=== PATIENT | female | born 1965 | race Caucasian/White ===

== ENCOUNTER → 2016-10-21 | Outpatient (CLI) | payer BC ==
[~2016-10-21] MED LIST: AZIT100S19 PO; CYCL10TA9 PO; DEXAINTSOL PO; HYDR15SO8 PO; IBUP-15 PO; LISI-556 PO; NAPR-243 PO; OMEP40CA36 PO; TETRACAINESUCKERS MT; TRM50T PO
--- NOTE | 2016-10-21 17:52 | Diagnostic Imaging Report ---
INDICATION: Left foot pain. TECHNIQUE: AP, oblique, and lateral views of the left foot are obtained. FINDINGS: No fracture or acute bony abnormality is seen. IMPRESSION: Negative left foot. Dictated by: Dictated on workstation # [id number]
== END ==
LOC: RAD 16:03
PROVIDERS: ATTEND Orthopaedic Surgery
DX: M79.672 Pain in left foot (principal)
CPT/HCPCS: 73630

== ENCOUNTER → 2019-08-03 | Outpatient (CLI) | payer BC ==
--- NOTE | 2019-08-04 11:25 | Diagnostic Imaging Report ---
EXAM: Digital mammogram bilateral screening COMPARISON: This study was compared to the prior exam of 07/27/2014. There are no current complaints. The postsurgical changes involving the right retroareolar region seen on the prior study are again evident and no different. The breasts are predominantly fatty. There is no primary or secondary sign of malignancy noted. IMPRESSION: 1. There is no evidence of malignancy. 2. The patient should have her annual bilateral screening mammogram on schedule in July 2020. ACR category 1. ACR BI-RADS Category 1: Negative. Result letter will be mailed to the patient. Note: At least 10% of breast cancer is not imaged by mammography. Dictated by: Dictated on workstation # [id number]
== END ==
LOC: RAD 15:14
PROVIDERS: ATTEND Family Medicine
DX: Z12.31 Encounter for screening mammogram for malignant neoplasm of breast (principal)
CPT/HCPCS: 77063; 77067

== ENCOUNTER 2019-12-05 05:39 | Outpatient (RCR) | payer BC ==
[~2019-12-05] VITALS: Ht 160 cm; Wt 88.6 kg
[~2019-12-05 05:39] MED LIST changes: +LISI-552 PO; +MELO15TA39 PO; +OMEP20CA18 PO
== END 2019-12-05 09:47 | disposition home or self-care (01) ==
LOC: PREOP 05:39
PROVIDERS: ATTEND Surgery
DX: Z01.812 Encounter for preprocedural laboratory examination (principal); Z20.828 Contact with and (suspected) exposure to other viral communicable diseases
CPT/HCPCS: 87635

== ENCOUNTER 2019-12-07 10:25 | Day surgery (SDC) | payer BC ==
[2019-12-07] VITALS (7 sets, daily range): BP systolic 113–157; BP diastolic 57–81
[~2019-12-07] VITALS: Ht 160 cm; Wt 88.6 kg
[2019-12-07] MEDS ORDERED: NS IV 500 ML 500 ML IV PRN (10:26)
[2019-12-07] MEDS ORDERED: NS IV 500 ML 500 ML ONE (10:27)
[2019-12-07] MEDS ORDERED: fentaNYL INJECTION 100 MCG/2 ML AMP IVP ONE (10:30)
[2019-12-07] MEDS ORDERED: LIDOCAINE JELLY 2% 6 ML SYRINGE MM PRN (10:30)
[2019-12-07] MEDS ORDERED: MIDAZOLAM 5 MG/5 ML (VERSED) VIAL IV ONE (10:30)
[2019-12-07] MEDS ORDERED: LACTATED RINGERS 1,000 ML IV STA (10:44)
[2019-12-07] MEDS ORDERED: PROPOFOL INJECTION 50 ML IV ONE (11:38)
[2019-12-07] MEDS ORDERED: LIDOCAINE JELLY 2% 6 ML SYRINGE ONE (12:31)
--- NOTE | 2019-12-07 12:53 | Progress Note-Pre Operative ---
Pre-Operative Progress Note H&P Reviewed The H&P was reviewed, patient examined and no changes noted. Date Seen by Provider: Dec 07, 2019 Time Seen by Provider: 11: Date H&P Reviewed: Dec 07, 2019 Time H&P Reviewed: :30 Pre-Operative Diagnosis: acreening, family hx colon ca SALINAS STUART MD Dec 07, 2019 12:53
--- NOTE | 2019-12-07 12:54 | Progress Note-Post Operative ---
Post-Operative Progess Note Surgeon (s)/Yarn Weight And Strength Tester (s) Surgeon SALINAS STUART MD Yarn Weight And Strength Tester: none Pre-Operative Diagnosis acreening, family hx colon ca Post-Operative Diagnosis mild chronic stage 2 ext and int hemorrhoids, mild sigmoid diverticulosis. Procedure & Operative Findings Date of Procedure 12/07/19 Procedure Performed/Findings EGD with bx. colonoscopy Anesthesia Type mac Estimated Blood Loss Estimated blood loss (mL): minimal Specimens/Packing Specimens Removed none SALINAS STUART MD Dec 07, 2019 12:54
--- NOTE | 2019-12-07 12:55 | Discharge Inst-Surgical ---
D/C Lap Instructions-NARCISO Follow Up Appt in 2 weeks Activity as tolerated High Fiber Diet 25g or more per day Avoid Alcohol, Caffeine, Spicy [place] and Acid foods. Drink 64 fluid oz or more of fluids per day. Symptoms to Report: Fever over 101 degree F, Nausea/Vomiting If any problems/questions: Contact your physician or go to Emergency Room SALINAS STUART MD Dec 07, 2019 12:55
[2019-12-07] MEDS ORDERED: ACETAMINOPHEN 325 MG TABLET PO PRN (13:00)
[2019-12-07] MEDS ORDERED: ONDANSETRON 4 MG/2 ML (SDV) Z0FRAN IVP PRN (13:00)
[2019-12-07] MEDS ORDERED: morphine INJ 10 MG/ML 1ML (SYR OR VIAL) IVP PRN ×2 (13:00)
[2019-12-07] MEDS ORDERED: HYDROcodone/APAP 5 MG/325 MG (LORTAB) TAB PO PRN (13:00)
--- NOTE | 2019-12-07 14:27 | Anesthesia-General Post-Op ---
MAC Patient Condition Mental Status/LOC: Same as Preop Cardiovascular: Satisfactory Nausea/Vomiting: Absent Respiratory: Satisfactory Pain: Controlled Complications: Absent Post Op Complications Complications None Follow Up Care/Instructions Patient Instructions None needed. Anesthesiology Discharge Order Discharge Order Patient is doing well, no complaints, stable vital signs, no apparent adverse anesthesia problems. No complications reported per nursing. VIKAS PASCUAL FITTER'S ASSISTANT Dec 07, 2019 14:27
--- NOTE | 2019-12-07 16:34 | OPERATIVE REPORT ---
DATE OF SERVICE: 12/07/2019 ATTENDING PRIMARY CARE PHYSICIAN: Hannah Sellers MD PREOPERATIVE DIAGNOSIS: Screening colonoscopy. POSTOPERATIVE DIAGNOSIS: Mild chronic stage II external and internal hemorrhoids, mild sigmoid diverticulosis. PROCEDURE: Colonoscopy. SURGEON: Salinas Stuart MD. ANESTHESIA: Monitored anesthesia care. ESTIMATED BLOOD LOSS: Minimal. FINDINGS: Mild chronic stage II external and internal hemorrhoids, mild sigmoid diverticulosis. DISPOSITION: The patient tolerated the procedure well. INDICATIONS: The patient is a 54-year-old female in need of a followup screening colonoscopy. She had one approximately 5 years ago and was found to have a stage II external and internal hemorrhoids as well as a mild sigmoid diverticulosis. She does have a family history of colon cancer with both her mother and father being diagnosed with the disease. She is otherwise doing well, does not report any red blood per rectum nor any dark tarry stools. DESCRIPTION OF PROCEDURE: The patient was brought to the endoscopy suite, laid in the left lateral decubitus position. After adequate IV pain and sedative medications and monitored anesthesia care, a digital rectal examination was performed, which revealed mild chronic stage II external and internal hemorrhoids, not actively edematous nor inflamed and no bleeding. Normal sphincter tone was felt and there were no palpable masses. The endoscope was then intubated to the anus and rectum gently insufflated. The endoscope was then advanced through the valves of [place] rectum with no polyps or any neoplasms identified. We then proceeded through the sigmoid colon where a mild sigmoid diverticulosis identified. There were no mucosal inflammatory changes to indicate any active diverticulitis. The endoscope was then advanced to the remainder of the descending, transverse and ascending colon to the cecum. These segments were normal. There were no polyps or any neoplasms identified throughout the colon or rectum. The endoscope was then slowly withdrawn while taking a second look and suctioning of residual air with no additional findings. The patient tolerated the procedure well. We will recommend continued medical management with a high fiber diet with at least 25 grams of fiber daily as well as significant amounts of water to promote soft stools on a daily basis. We will recommend a followup colonoscopy in 5 years. Job ID: [id number] DocumentID: [id number] Dictated Date: 12/07/2019 12:45:23 Kiosk Sales Representative Date: 12/07/2019 15:24:39 Dictated By: SALINAS STUART MD
== END 2019-12-07 13:25 | disposition home or self-care (01) ==
LOC: ENDO 10:25
PROVIDERS: ATTEND Surgery
DX: Z12.11 Encounter for screening for malignant neoplasm of colon (principal); K64.1 Second degree hemorrhoids; K57.30 Diverticulosis of large intestine without perforation or abscess without bleeding; I10 Essential (primary) hypertension; K21.9 Gastro-esophageal reflux disease without esophagitis; M19.90 Unspecified osteoarthritis, unspecified site; E66.9 Obesity, unspecified; Z68.34 Body mass index [BMI] 34.0-34.9, adult; Z79.899 Other long term (current) drug therapy; Z88.0 Allergy status to penicillin; Z88.2 Allergy status to sulfonamides; Z90.710 Acquired absence of both cervix and uterus; Z80.0 Family history of malignant neoplasm of digestive organs; Z80.1 Family history of malignant neoplasm of trachea, bronchus and lung

== ENCOUNTER → 2021-10-01 | Outpatient (CLI) | payer BC ==
[~2021-10-01] MED LIST changes: -LISI-552 PO; -LISI-556 PO; +LISI20TA26 PO; +LISI5TAB20 PO
--- NOTE | 2021-10-01 16:16 | Diagnostic Imaging Report ---
INDICATION: Routine screening. COMPARISON: 08/03/2019 and 07/27/2014. TECHNIQUE: 2D and 3D bilateral screening mammography was performed with CAD. FINDINGS: Scattered fibroglandular densities are identified bilaterally. The parenchymal pattern is stable. There are benign calcifications. No mass or malignant-appearing microcalcifications are seen. The axillae are unremarkable. IMPRESSION: No mammographic features suspicious for malignancy are identified. ACR BI-RADS Category 2: Benign findings. Result letter will be mailed to the patient. Note: At least 10% of breast cancer is not imaged by mammography. Dictated by: Dictated on workstation # [id number]
== END ==
LOC: RAD 12:58
PROVIDERS: ATTEND Nurse Practitioner Family
DX: Z12.31 Encounter for screening mammogram for malignant neoplasm of breast (principal)
CPT/HCPCS: 77063; 77067

== ENCOUNTER → 2022-07-01 | Outpatient (CLI) | payer BC, OTHER ==
--- NOTE | 2022-07-01 16:16 | Diagnostic Imaging Report ---
PROCEDURE: US Thyroid. TECHNIQUE: Multiple real-time grayscale images were obtained of the thyroid in various projections. INDICATION: Thyroid nodule COMPARISON: None FINDINGS: Right thyroid lobe: Size (cm): 4.0 x 1.3 x 1.3 Echotexture: Normal Vascularity: Normal Nodules: None Isthmus: Size (cm): 0.3 Nodules: None Left thyroid lobe: Size (cm): 4.4 x 2.1 x 2.4 Echotexture: Normal Vascularity: Normal Nodules: Isoechoic solid nodule in the left mid thyroid measures 2.6 cm. Impression: 1. TI-RADS 3 nodule in the left mid thyroid qualifies for FNA based on TI-RADS criteria. Dictated by: Dictated on workstation # [id number]
== END ==
LOC: RAD 14:14
PROVIDERS: ATTEND Family Medicine
DX: E04.1 Nontoxic single thyroid nodule (principal)
CPT/HCPCS: 76536

== ENCOUNTER → 2022-07-14 | Outpatient (CLI) | payer BC, OTHER ==
[~2022-07-14] MED LIST changes: +LIDOCAINE 1% INJ 10 ML VIAL INJ ONE; +LIDOCAINE 1% INJ 10 ML VIAL ONE
--- NOTE | 2022-07-14 12:17 | Diagnostic Imaging Report ---
INDICATION: Left thyroid nodule. Patient presents for ultrasound-guided fine-needle aspiration. DETAILS OF THE PROCEDURE: The patient was brought to the Procedure Room and placed on the table in the supine position. Ultrasound imaging over the neck was performed to evaluate for an appropriate entry site. The left neck was then prepped and draped in the usual sterile fashion. A small amount of 1% lidocaine was utilized for local anesthesia. A total of four passes was made into the solid dominant nodule in the left lobe of the thyroid utilizing 25-gauge needles and fine-needle aspiration technique. Hemostasis was obtained. The patient tolerated the procedure well and left the Department in stable condition. IMPRESSION: Successful ultrasound guided fine-needle aspiration of the dominant left lobe thyroid nodule. Pathology results are currently pending. Dictated by: Dictated on workstation # [id number]
== END ==
LOC: RAD 10:38
PROVIDERS: ATTEND Family Medicine
DX: E04.1 Nontoxic single thyroid nodule (principal)